=== PATIENT | female | born 1985 | race Caucasian/White ===

== ENCOUNTER 2018-07-01 15:39 | Emergency (ER) | payer OTHER ==
[2018-07-01 16:30] LABS: ABS Basophils 0 10^3/ul (0-0.2); ABS Eosinophils 0 10^3/ul (0-0.6); ABS Lymphocytes 1.2 10^3/ul (1.0-4.8); ABS Monocytes 0.6 10^3/ul (0-0.8); ABS Neutrophils 10.1 10^3/ul (1.5-7.7); ABS Nucleated RBC 0 10^3/ul; Eosinophil % 0.1 % (0-6); Hematocrit 39 % (35-47); Hemoglobin 13.1 g/dl (12.0-16.0); Lymphocyte % 10.3 % (25-47); Mean Corpuscular HGB Conc 34 g/dl (31-36); Mean Corpuscular Hemoglobin 31 pg (27-31); Mean Corpuscular Volume 94 fL (80-97); Mean Platelet Volume 7.1 um3 (7.4-10.4); Nucleated Red Blood Cells % 0; Platelet Count 259 10^3/ul (150-450); Red Blood Count 4.17 10^6/ul (4.00-5.40); Red Cell Distribution Width 13 % (10.5-15)
--- NOTE | 2018-07-01 16:53 | RAD ---
INDICATION: Left flank pain. Fever COMPARISON: None TECHNIQUE: Longitudinal and transverse scans of the kidneys were obtained. FINDINGS: Kidneys: The kidneys are normal in size and echogenicity. No renal masses, calculi, or hydronephrosis is seen. The right kidney measures 10.8 x 5.2 x 4.7 cm and the left kidney 11.5 x 6.1 x 5.1 cm. Other: None IMPRESSION: NORMAL RENAL SONOGRAM.
[2018-07-01 17:40] LABS: EGFR Non-African American 97.6 (>60)
[2018-07-01] MEDS ORDERED: NS 0.9% 1000 ML* 1,000 ML IV ONE (18:40)
[2018-07-01] MEDS ORDERED: Ketorolac INJ* 30 MG/ML 1 ML VIAL IV PUSH ONE (18:40)
[2018-07-01 18:50] LABS: Urine Appearance Cloudy; Urine Blood Negative (Negative); Urine Color Yellow; Urine Ketones 2+ (Negative); Urine Protein Negative (Negative); Urine Red Blood Cell 2+(6-10/hpf) (Absent); Urine Specific Gravity 1.015 (1.010-1.030); Urine Urobilinogen Negative (Negative); Urine White Blood Cell 3+(>20/hpf) (Absent)
[2018-07-01] MEDS ORDERED: Morphine INJ** 4 MG/ML 1 ML CARPUJECT IV ONE (19:32)
[2018-07-01] MEDS ORDERED: Acetaminophen TAB* 325 MG PO ONE (19:41)
[2018-07-01] MEDS ORDERED: Ciprofloxacin 400MG IVPREMIX(* 400 MG/200 ML BAG IVPB ONE (19:41)
--- NOTE | 2018-07-01 19:49 | ED ---
GI/ HPI - HPI Summary HPI Summary: 32-year-old female presents with fever and flank pain for the past 2 days. She states she was seen at [place] yesterday was diagnosed with pyeloa. She is given a dose IV antibiotics there and has not taken her oral antibiotics. They placed her on Bactrim which she has not taken yet. She states been having intermittent fevers. States she is not able to manage her pain at home so she returned. No nausea and no vomiting. No vaginal discharge. No previous belly surgeries. No bowel pain. No chest pain shortness breath. No pains urination. She has a previous history of IV drug use. - History of Current Complaint Chief Complaint: EDFlankPain Time Seen by Provider: 07/01/18 18:27 Stated Complaint: BACK PAIN/FEVER Pain Intensity: 10 - Allergy/Home Medications Allergies/Adverse Reactions: Allergies Allergy/AdvReac Type Severity Reaction Status Date / Time amoxicillin Allergy Rash Verified 07/01/18 15:52 clindamycin Allergy Rash Verified 07/01/18 15:52 diphenhydramine Allergy Rash Verified 07/01/18 15:52 [From Benadryl] ibuprofen Allergy Vomiting Verified 07/01/18 15:52 Penicillins Allergy Rash Verified 07/01/18 15:52 rofecoxib [From Vioxx] Allergy Rash Verified 07/01/18 15:52 Home Medications: Home Medications Citalopram TAB* [CeleXA TAB*] 30 mg PO DAILY 07/01/18 [History Confirmed ] Cyclobenzaprine TAB* [Flexeril 10 MG TAB*] 10 mg PO BID 07/01/18 [History Confirmed 07/01/18] Diclofenac Sodium EC TAB* [Voltaren EC TAB*] 50 mg PO BID 07/01/18 [History Confirmed 07/01/18] Gabapentin TAB(NF) [Neurontin 600 mg TAB(NF)] 900 mg PO TID 07/01/18 [History Confirmed 07/01/18] LevoCETirizine TAB (NF) [Xyzal TAB (NF)] 5 mg PO QPM 07/01/18 [History Confirmed 07/01/18] buPROPion SR TAB* [Wellbutrin SR TAB*] 150 mg PO BID 07/01/18 [History Confirmed 07/01/18] hydrOXYzine HCL TAB* [Atarax 25 MG TAB*] 25 - 50 mg PO DAILY 07/01/18 [History Confirmed 07/01/18] metFORMIN* [Glucophage 500 MG TAB *] 500 mg PO QAM 07/01/18 [History Confirmed 07/01/18] traMADol TAB* [Ultram*] 50 mg PO BID 07/01/18 [History Confirmed 07/01/18] PMH/Surg Hx/FS Hx/Imm Hx Endocrine/Hematology History: Denies: Hx Anticoagulant Therapy Cardiovascular History: Denies: Hx Myocardial Infarction Musculoskeletal History: Reports: Hx Back Problems Neurological History: Reports: Hx Migraine Psychiatric History: Reports: Hx Anxiety, Hx Depression Infectious Disease History: No Infectious Disease History: Denies: Traveled Outside the [place] in Last 30 Days - Family History Known Family History: Positive: Cardiac Disease, Hypertension - Social History Alcohol Use: None Substance Use Type: Reports: None 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 Negative: dysuria All Other Systems Reviewed And Are Negative: Yes Physical Exam Triage Information Reviewed: Yes Vital Signs On Initial Exam: Initial Vitals Temp Pulse Resp BP Pulse Ox 100.3 F 117 20 113/63 97 07/01/18 15:45 07/01/18 15:45 07/01/18 15:45 07/01/18 15:45 07/01/18 15:45 Vital Signs Reviewed: Yes Appearance: Positive: Well-Appearing Skin: Positive: Warm, Dry Head/Face: Positive: Normal Head/Face Inspection Eyes: Positive: Normal, Conjunctiva Clear ENT: Positive: Pharynx normal Respiratory/Lung Sounds: Positive: Clear to Auscultation, Breath Sounds Present Cardiovascular: Positive: Normal, RRR Abdomen Description: Positive: Soft, CVA Tenderness (L), Other: - mild tenderness LUQ Bowel Sounds: Positive: Present Musculoskeletal: Positive: Normal Neurological: Positive: Normal Psychiatric: Positive: Normal Diagnostics - Vital Signs Vital Signs Temp Pulse Resp BP Pulse Ox 07/01/18 19:20 93 96/64 99 07/01/18 19:00 97 99 07/01/18 18:50 97 114/76 99 07/01/18 18:32 101.1 F 07/01/18 18:29 102 103/73 98 07/01/18 17:59 99.7 F 108 20 90/60 98 07/01/18 15:45 100.3 F 117 20 113/63 97 - Laboratory Lab Results: Lab Results 07/01/18 07/01/18 07/01/18 Range/Units 16:20 16:20 16:20 WBC 12.0 H (3.5-10.8) 10^3/ul RBC 4.17 (4.00-5.40) 10^6/ul Hgb 13.1 (12.0-16.0) g/dl Hct 39 (35-47) % MCV 94 (80-97) fL MCH 31 (27-31) pg MCHC 34 (31-36) g/dl RDW 13 (10.5-15) % Plt Count 259 (150-450) 10^3/ul MPV 7.1 L (7.4-10.4) um3 Neut % (Auto) 84.2 H (38-83) % Lymph % (Auto) 10.3 L (25-47) % [place] % (Auto) 5.3 (0-7) % Eos % (Auto) 0.1 (0-6) % Baso % (Auto) 0.1 (0-2) % Absolute Neuts (auto) 10.1 H (1.5-7.7) 10^3/ul Absolute Lymphs (auto) 1.2 (1.0-4.8) 10^3/ul Absolute Monos (auto) 0.6 (0-0.8) 10^3/ul Absolute Eos (auto) 0 (0-0.6) 10^3/ul Absolute Basos (auto) 0 (0-0.2) 10^3/ul Absolute Nucleated RBC 0 10^3/ul Nucleated RBC % 0 Sodium 137 (135-145) mmol/L Potassium 3.7 (3.5-5.0) mmol/L Chloride 107 (101-111) mmol/L Carbon Dioxide 21 L (22-32) mmol/L Anion Gap 9 (2-11) mmol/L BUN 10 (6-24) mg/dL Creatinine 0.70 (0.51-0.95) mg/dL Est GFR ( Amer) 118.1 (>60) Est GFR (Non-Af Amer) 97.6 (>60) BUN/Creatinine Ratio 14.3 (8-20) Glucose 103 H (70-100) mg/dL Lactic Acid 0.8 (0.5-2.0) mmol/L Calcium 9.4 (8.6-10.3) mg/dL Total Bilirubin 0.50 (0.2-1.0) mg/dL AST 16 (13-39) U/L ALT 15 (7-52) U/L Alkaline Phosphatase 112 H (34-104) U/L C-Reactive Protein 87.99 H (<8.01) mg/L Total Protein 7.7 (6.4-8.9) g/dL Albumin 4.2 (3.2-5.2) g/dL Globulin 3.5 (2-4) g/dL Albumin/Globulin Ratio 1.2 (1-3) Lipase < 10 L (11.0-82.0) U/L Beta HCG, Quant < 0.60 mIU/mL Urine Color Urine Appearance Urine pH (5-9) Ur Specific [place] (1.010-1.030) Urine Protein (Negative) Urine Ketones (Negative) Urine Blood (Negative) Urine Nitrate (Negative) Urine Bilirubin (Negative) Urine Urobilinogen (Negative) Ur Leukocyte Esterase (Negative) Urine WBC (Auto) (Absent) Urine RBC (Auto) (Absent) Ur Squamous Epith Cells (Absent) Urine Bacteria (Absent) Urine Glucose (Negative) 07/01/18 Range/Units 18:08 WBC (3.5-10.8) 10^3/ul RBC (4.00-5.40) 10^6/ul Hgb (12.0-16.0) g/dl Hct (35-47) % MCV (80-97) fL MCH (27-31) pg MCHC (31-36) g/dl RDW (10.5-15) % Plt Count (150-450) 10^3/ul MPV (7.4-10.4) um3 Neut % (Auto) (38-83) % Lymph % (Auto) (25-47) % [place] % (Auto) (0-7) % Eos % (Auto) (0-6) % Baso % (Auto) (0-2) % Absolute Neuts (auto) (1.5-7.7) 10^3/ul Absolute Lymphs (auto) (1.0-4.8) 10^3/ul Absolute Monos (auto) (0-0.8) 10^3/ul Absolute Eos (auto) (0-0.6) 10^3/ul Absolute Basos (auto) (0-0.2) 10^3/ul Absolute Nucleated RBC 10^3/ul Nucleated RBC % Sodium (135-145) mmol/L Potassium (3.5-5.0) mmol/L Chloride (101-111) mmol/L Carbon Dioxide (22-32) mmol/L Anion Gap (2-11) mmol/L BUN (6-24) mg/dL Creatinine (0.51-0.95) mg/dL Est GFR ( Amer) (>60) Est GFR (Non-Af Amer) (>60) BUN/Creatinine Ratio (8-20) Glucose (70-100) mg/dL Lactic Acid (0.5-2.0) mmol/L Calcium (8.6-10.3) mg/dL Total Bilirubin (0.2-1.0) mg/dL AST (13-39) U/L ALT (7-52) U/L Alkaline Phosphatase (34-104) U/L C-Reactive Protein (<8.01) mg/L Total Protein (6.4-8.9) g/dL Albumin (3.2-5.2) g/dL Globulin (2-4) g/dL Albumin/Globulin Ratio (1-3) Lipase (11.0-82.0) U/L Beta HCG, Quant mIU/mL Urine Color Yellow Urine Appearance Cloudy Urine pH 6.0 (5-9) Ur Specific [place] 1.015 (1.010-1.030) Urine Protein Negative (Negative) Urine Ketones 2+ A (Negative) Urine Blood Negative (Negative) Urine Nitrate Negative (Negative) Urine Bilirubin Negative (Negative) Urine Urobilinogen Negative (Negative) Ur Leukocyte Esterase 2+ A (Negative) Urine WBC (Auto) 3+(>20/hpf) A (Absent) Urine RBC (Auto) 2+(6-10/hpf) A (Absent) Ur Squamous Epith Cells Present A (Absent) Urine Bacteria Absent (Absent) Urine Glucose Negative (Negative) Result Diagrams: 07/01/18 16:20 07/01/18 16:20 Lab Statement: Any lab studies that have been ordered have been reviewed, and results considered in the medical decision making process. - Ultrasound No standard instances Ultrasound Interpretation: No Acute Changes Ultrasound Interpretation Completed By: Nicole RIVERA Course/Dx - Course Course Of Treatment: 32-year-old female presents with fever and flank pain for the past 2 days. She states she was seen at [place] yesterday was diagnosed with pyeloa. She is given a dose IV antibiotics there and has not taken her oral antibiotics. They placed her on Bactrim which she has not taken yet. She states been having intermittent fevers. States she is not able to manage her pain at home so she returned. No nausea and no vomiting. No vaginal discharge. No previous belly surgeries. No bowel pain. No chest pain shortness breath. No pains urination. on exam has CVA tenderness left. LUQ pain. labs wbc 12. lactic normal. urine shows uti. renal u/s normal. gave dose of cipro here. gave pain medication and feeling better. patient does not want to admitted. will send home with bactrim for more days as only has enough for 7 days. will send home with pain medication. patient understand and agrees with plan. - Diagnoses Differential Diagnoses - Female: Pyelonephritis, Urinary Tract Infection, Ureteral Calculi Provider Diagnoses: Pyelonephritis Discharge - Sign-Out/Discharge Documenting (check all that apply): Patient Departure - Discharge Plan Condition: Good Disposition: HOME Prescriptions: oxyCODONE TAB* [Roxycodone TAB 5 mg*] 5 mg PO Q6H PRN #12 tab MDD 4 PRN Reason: Pain Sulfamethox/Trimethoprim DS* [Bactrim DS 800/160 TAB*] 1 tab PO BID #8 tab Patient Education Materials: Kidney Infection (ED) Referrals: No Primary Care Phys,NOPCP [Primary Care Provider] - Additional Instructions: Take antibiotic twice a day for 14 days Drink plenty of water Take Tylenol every 6 hours as needed for pain and fever, use oxycodone every 6 hours as need for break through pain Return to ED if develop severe vomiting, or any new or worsening symptoms - Billing Disposition and Condition Condition: GOOD Disposition: Home
[2018-07-01] MEDS ORDERED: Morphine INJ* 2 MG/ML 1 ML SYRINGE (TWO MG - NEW SYRINGE VERSION) ONE (20:10)
[2018-07-01 21:26] VITALS: BP 103/75
== END 2018-07-01 21:24 | disposition home or self-care (01) ==
LOC: ED 15:39
DX: N12 Tubulo-interstitial nephritis, not specified as acute or chronic (principal); F17.200 Nicotine dependence, unspecified, uncomplicated; F41.9 Anxiety disorder, unspecified; F32.9 Major depressive disorder, single episode, unspecified; Z88.0 Allergy status to penicillin; Z88.3 Allergy status to other anti-infective agents; Z88.6 Allergy status to analgesic agent
CPT/HCPCS: 36415; 76775; 80053; 81003; 81015; 83605; 83690; 84702; 85025; 86140; 87040; 87086; 96365; 96375; 96376; 99283; A9270-GY; J0744; J1885; J2270

== ENCOUNTER 2018-08-21 14:49 | Emergency (ER) | payer OTHER ==
[2018-08-21 15:59] LABS: ABS Basophils 0.1 10^3/ul (0-0.2); ABS Eosinophils 0.1 10^3/ul (0-0.6); ABS Lymphocytes 2.3 10^3/ul (1.0-4.8); ABS Monocytes 0.4 10^3/ul (0-0.8); ABS Neutrophils 2.9 10^3/ul (1.5-7.7); ABS Nucleated RBC 0 10^3/ul; Eosinophil % 2.6 % (0-6); Hematocrit 38 % (35-47); Hemoglobin 12.8 g/dl (12.0-16.0); Mean Corpuscular HGB Conc 34 g/dl (31-36); Mean Corpuscular Hemoglobin 31 pg (27-31); Mean Corpuscular Volume 93 fL (80-97); Mean Platelet Volume 7.7 um3 (7.4-10.4); Nucleated Red Blood Cells % 0.1; Platelet Count 238 10^3/ul (150-450); Red Blood Count 4.08 10^6/ul (4.00-5.40); Red Cell Distribution Width 14 % (10.5-15); White Blood Count 5.8 10^3/ul (3.5-10.8)
[2018-08-21 16:16] LABS: EGFR Non-African American 92.4 (>60)
--- NOTE | 2018-08-21 16:40 | RAD ---
INDICATION: Shortness of breath and chest pain. COMPARISON: There are no relevant prior studies available for comparison. TECHNIQUE: Dual-energy PA and lateral views of the chest were obtained. FINDINGS: The heart is within normal limits in size. Mediastinal and hilar contours appear within normal limits. The lungs are clear. No pleural effusion is present. IMPRESSION: NO EVIDENCE FOR ACTIVE CARDIOPULMONARY DISEASE.
[2018-08-21 17:28] VITALS: BP 109/74
--- NOTE | 2018-08-22 07:53 | ED ---
HPI Chest Pain - HPI Summary HPI Summary: Patient is a 33-year-old female smoker presenting to the ED with 1 week history of midsternal chest pain is nonradiating. Worse with palpation of midsternal region, alleviated with nothing. She has been taking Tylenol, however is allergic to ibuprofen without relief. Denies any significant PMH. Denies any immediate family members with cardiac history. Denies any fevers, sweats, chills. She states she has been coughing more frequently, without production and is diagnosed with bronchitis several times throughout the ear. She states this feels somewhat similar to her bronchitis symptoms. She has not been taking cough medication, steroids or other [id number]'s for relief. She denies any recent travel or OCP use. - History of Current Complaint Chief Complaint: EDFluSymptoms Time Seen by Provider: 08/21/18 15:19 Hx Obtained From: Patient Onset/Duration: Started Hours Ago Timing: Constant Initial Severity: Moderate Current Severity: Moderate Pain Intensity: 2 Pain Scale Used: 0-10 Numeric Chest Pain Location: Mid Sternal Chest Pain Radiates: No Character: Crushing, Dull/Aching Aggravating Factor(s): Other: - palpation Alleviating Factor(s): Nothing Associated Signs and Symptoms: Positive: Cough, Nonproductive Cough - Risk Factors Pulmonary Embolism Risk Factors: Smoking TAD Risk Factors: Smoking AMI/ACS Risk Factors: Smoking - Allergy/Home Medications Allergies/Adverse Reactions: Allergies Allergy/AdvReac Type Severity Reaction Status Date / Time amoxicillin Allergy Rash Verified 07/01/18 15:52 clindamycin Allergy Rash Verified 07/01/18 15:52 diphenhydramine Allergy Rash Verified 07/01/18 15:52 [From Benadryl] ibuprofen Allergy Vomiting Verified 07/01/18 15:52 Penicillins Allergy Rash Verified 07/01/18 15:52 rofecoxib [From Vioxx] Allergy Rash Verified 07/01/18 15:52 Home Medications: Home Medications hydrOXYzine pamoate [Vistaril] 25 - 50 mg PO DAILY 08/21/18 [History Confirmed 08/21/18] PMH/Surg Hx/FS Hx/Imm Hx Previously Healthy: Yes Endocrine/Hematology History: Denies: Hx Anticoagulant Therapy Cardiovascular History: Denies: Hx Myocardial Infarction Musculoskeletal History: Reports: Hx Back Problems Neurological History: Reports: Hx Migraine Psychiatric History: Reports: Hx Anxiety, Hx Depression - Immunization History Hx Pertussis Vaccination: No Immunizations Up to Date: Yes Infectious Disease History: No Infectious Disease History: Denies: Traveled Outside the [place] in Last 30 Days - Family History Known Family History: Positive: Cardiac Disease, Hypertension - Social History Occupation: Unemployed Lives: With Family Alcohol Use: None Hx Substance Use: No Substance Use Type: Reports: None 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 Negative: Shortness Of Breath Negative: Abdominal Pain, Vomiting, Diarrhea, Nausea Genitourinary: Negative Positive: no symptoms reported, see HPI Positive: Myalgia - misternal chest pain Negative: Rash, Bruising Neurological: Negative All Other Systems Reviewed And Are Negative: Yes Physical Exam Triage Information Reviewed: Yes Vital Signs On Initial Exam: Initial Vitals Temp Pulse Resp BP Pulse Ox 97.1 F 105 18 99/73 99 08/21/18 15:01 08/21/18 15:01 08/21/18 15:01 08/21/18 15:01 08/21/18 15:01 Vital Signs Reviewed: Yes Appearance: Positive: No Pain Distress, Well-Nourished Skin: Positive: Warm, Skin Color Reflects Adequate Perfusion Head/Face: Positive: Normal Head/Face Inspection Eyes: Positive: EOMI, DERREK, Conjunctiva Clear Neck: Positive: Supple, Nontender, No Lymphadenopathy Respiratory/Lung Sounds: Positive: Wheezes Cardiovascular: Positive: RRR, Pulses are Symmetrical in both Upper and Lower Extremities Musculoskeletal: Positive: Strength/ROM Intact Neurological: Positive: Speech Normal Psychiatric: Positive: Normal, Affect/Mood Appropriate AVPU Assessment: Alert - Lashes are Diagnostics - Vital Signs Vital Signs Temp Pulse Resp BP Pulse Ox 08/21/18 17:27 98 F 78 18 109/74 100 08/21/18 15:01 97.1 F 105 18 99/73 99 - Laboratory Lab Results: Lab Results 08/21/18 08/21/18 08/21/18 Range/Units 15:51 15:51 15:51 WBC 5.8 (3.5-10.8) 10^3/ul RBC 4.08 (4.00-5.40) 10^6/ul Hgb 12.8 (12.0-16.0) g/dl Hct 38 (35-47) % MCV 93 (80-97) fL MCH 31 (27-31) pg MCHC 34 (31-36) g/dl RDW 14 (10.5-15) % Plt Count 238 (150-450) 10^3/ul MPV 7.7 (7.4-10.4) um3 Neut % (Auto) 50.1 (38-83) % Lymph % (Auto) 40.0 (25-47) % [place] % (Auto) 6.4 (0-7) % Eos % (Auto) 2.6 (0-6) % Baso % (Auto) 0.9 (0-2) % Absolute Neuts (auto) 2.9 (1.5-7.7) 10^3/ul Absolute Lymphs (auto) 2.3 (1.0-4.8) 10^3/ul Absolute Monos (auto) 0.4 (0-0.8) 10^3/ul Absolute Eos (auto) 0.1 (0-0.6) 10^3/ul Absolute Basos (auto) 0.1 (0-0.2) 10^3/ul Absolute Nucleated RBC 0 10^3/ul Nucleated RBC % 0.1 D-Dimer, Quantitative < 200 (Less Than 230) ng/mL Sodium 142 (135-145) mmol/L Potassium 3.6 (3.5-5.0) mmol/L Chloride 111 (101-111) mmol/L Carbon Dioxide 28 (22-32) mmol/L Anion Gap 3 (2-11) mmol/L BUN 6 (6-24) mg/dL Creatinine 0.73 (0.51-0.95) mg/dL Est GFR ( Amer) 111.8 (>60) Est GFR (Non-Af Amer) 92.4 (>60) BUN/Creatinine Ratio 8.2 (8-20) Glucose 79 (70-100) mg/dL Lactic Acid (0.5-2.0) mmol/L Calcium 9.5 (8.6-10.3) mg/dL Magnesium 2.0 (1.9-2.7) mg/dL Total Bilirubin 0.30 (0.2-1.0) mg/dL AST 11 L (13-39) U/L ALT 8 (7-52) U/L Alkaline Phosphatase 71 (34-104) U/L Troponin I 0.00 (<0.04) ng/mL Total Protein 7.2 (6.4-8.9) g/dL Albumin 4.3 (3.2-5.2) g/dL Globulin 2.9 (2-4) g/dL Albumin/Globulin Ratio 1.5 (1-3) Beta HCG, Quant < 0.60 mIU/mL 08/21/18 Range/Units 15:51 WBC (3.5-10.8) 10^3/ul RBC (4.00-5.40) 10^6/ul Hgb (12.0-16.0) g/dl Hct (35-47) % MCV (80-97) fL MCH (27-31) pg MCHC (31-36) g/dl RDW (10.5-15) % Plt Count (150-450) 10^3/ul MPV (7.4-10.4) um3 Neut % (Auto) (38-83) % Lymph % (Auto) (25-47) % [place] % (Auto) (0-7) % Eos % (Auto) (0-6) % Baso % (Auto) (0-2) % Absolute Neuts (auto) (1.5-7.7) 10^3/ul Absolute Lymphs (auto) (1.0-4.8) 10^3/ul Absolute Monos (auto) (0-0.8) 10^3/ul Absolute Eos (auto) (0-0.6) 10^3/ul Absolute Basos (auto) (0-0.2) 10^3/ul Absolute Nucleated RBC 10^3/ul Nucleated RBC % D-Dimer, Quantitative (Less Than 230) ng/mL Sodium (135-145) mmol/L Potassium (3.5-5.0) mmol/L Chloride (101-111) mmol/L Carbon Dioxide (22-32) mmol/L Anion Gap (2-11) mmol/L BUN (6-24) mg/dL Creatinine (0.51-0.95) mg/dL Est GFR ( Amer) (>60) Est GFR (Non-Af Amer) (>60) BUN/Creatinine Ratio (8-20) Glucose (70-100) mg/dL Lactic Acid 1.5 (0.5-2.0) mmol/L Calcium (8.6-10.3) mg/dL Magnesium (1.9-2.7) mg/dL Total Bilirubin (0.2-1.0) mg/dL AST (13-39) U/L ALT (7-52) U/L Alkaline Phosphatase (34-104) U/L Troponin I (<0.04) ng/mL Total Protein (6.4-8.9) g/dL Albumin (3.2-5.2) g/dL Globulin (2-4) g/dL Albumin/Globulin Ratio (1-3) Beta HCG, Quant mIU/mL Result Diagrams: 08/21/18 15:51 08/21/18 15:51 Lab Statement: Any lab studies that have been ordered have been reviewed, and results considered in the medical decision making process. Chest Pain Course/Dx - Course Course Of Treatment: During the course treatment, the patient is evaluated for midsternal chest pain. On physical examination, chest pain is midsternal without radiation and worse with palpation. Denies any feelings of palpitations or fluttering. Denies any recent travel or OCP use, however patient is a smoker. D-dimer obtained which is less than 200. Troponin obtained 0.00. Chest x-ray is negative for any acute cardiopulmonary findings. Breath sounds present, lungs with bilateral inspirational wheezing. RRR. Patient will be diagnosed with midsternal chest pain as well as bronchitis and she is given steroids and Tessalon. EKG shows NSR. - Chest Pain Differential Diagnosis/HQI/PQRI: Chest Wall - Diagnoses Provider Diagnoses: Midsternal chest pain Discharge - Sign-Out/Discharge Documenting (check all that apply): Patient Departure - Discharge Plan Condition: Stable Disposition: HOME Prescriptions: Benzonatate CAP* [Tessalon CAP*] 100 mg PO TID #21 cap predniSONE TAB* [Deltasone TAB*] 50 mg PO DAILY #5 tab MDD 1 Referrals: No Primary Care Phys,NOPCP [Primary Care Provider] - Additional Instructions: Prednisone once daily in the morning 5 days Tessalon as needed for cough Tylenol for any discomfort Return to the ED if you develop any worsening or changing symptoms - Billing Disposition and Condition Condition: STABLE Disposition: Home
== END 2018-08-21 17:27 | disposition home or self-care (01) ==
LOC: ED 14:49
DX: R07.9 Chest pain, unspecified (principal); R05 Cough; F17.210 Nicotine dependence, cigarettes, uncomplicated
CPT/HCPCS: 36415; 71046; 80053; 83605; 83735; 84484; 84702; 85025; 85379; 93005; 99282

== ENCOUNTER 2018-09-07 16:55 | Emergency (ER) | payer OTHER ==
[2018-09-07 18:24] LABS: ABS Basophils 0.1 10^3/ul (0-0.2); ABS Eosinophils 0.1 10^3/ul (0-0.6); ABS Lymphocytes 1.9 10^3/ul (1.0-4.8); ABS Monocytes 0.4 10^3/ul (0-0.8); ABS Neutrophils 1.5 10^3/ul (1.5-7.7); ABS Nucleated RBC 0 10^3/ul; Eosinophil % 3.4 % (0-6); Hematocrit 40 % (35-47); Hemoglobin 13.3 g/dl (12.0-16.0); Lymphocyte % 46.8 % (25-47); Mean Corpuscular HGB Conc 34 g/dl (31-36); Mean Corpuscular Hemoglobin 32 pg (27-31); Mean Corpuscular Volume 93 fL (80-97); Mean Platelet Volume 7.6 um3 (7.4-10.4); Nucleated Red Blood Cells % 0.1; Platelet Count 271 10^3/ul (150-450); Red Blood Count 4.23 10^6/ul (4.00-5.40); Red Cell Distribution Width 13 % (10.5-15); White Blood Count 4.1 10^3/ul (3.5-10.8)
[2018-09-07 18:41] LABS: EGFR Non-African American 92.4 (>60)
[2018-09-07 19:04] LABS: Urine Appearance Cloudy; Urine Blood Negative (Negative); Urine Color Amber; Urine Ketones 1+ (Negative); Urine Protein 1+(30 mg/dL) (Negative); Urine Red Blood Cell Absent (Absent); Urine Specific Gravity 1.024 (1.010-1.030); Urine Urobilinogen Positive (Negative); Urine White Blood Cell 2+(11-20/hpf) (Absent)
[2018-09-07] MEDS ORDERED: Sulfamethox/Trimethoprim DS 800/160* TAB PO ONE (19:09)
[2018-09-07] MEDS ORDERED: Cyclobenzaprine TAB* 10 MG PO ONE (19:09)
[2018-09-07] MEDS ORDERED: hydrOXYzine HCL TAB* 25 MG PO ONE (19:09)
--- NOTE | 2018-09-07 19:14 | ED ---
GI/ HPI - HPI Summary HPI Summary: 33-year-old female presents with acute on chronic back pain and lower abdominal pain for the past couple days. She admits to dysuria. She admits to frequency. She denies any flank pain. She denies any new location of the back pain. No saddle anesthesia or loss of bowel or bladder. no fevers. No new injury. She also states that her mental health provider stopped all of her medications so she started feeling anxious and depressed. She denies any suicidal or homicidal ideations. She states she is also off of her medications for her back pain. she states that her sugars have been dropping low to 70 and 80s. she is on metformin for her dm. she states she does not know what to eat for her DM. - History of Current Complaint Chief Complaint: EDGeneral Time Seen by Provider: 09/07/18 18:03 Stated Complaint: BACK/ABD PAINC Pain Intensity: 4 - Allergy/Home Medications Allergies/Adverse Reactions: Allergies Allergy/AdvReac Type Severity Reaction Status Date / Time amoxicillin Allergy Rash Verified 07/01/18 15:52 clindamycin Allergy Rash Verified 07/01/18 15:52 diphenhydramine Allergy Rash Verified 07/01/18 15:52 [From Benadryl] ibuprofen Allergy Vomiting Verified 07/01/18 15:52 Penicillins Allergy Rash Verified 07/01/18 15:52 rofecoxib [From Vioxx] Allergy Rash Verified 07/01/18 15:52 PMH/Surg Hx/FS Hx/Imm Hx Endocrine/Hematology History: Reports: Hx Diabetes Denies: Hx Anticoagulant Therapy Cardiovascular History: Denies: Hx Myocardial Infarction Musculoskeletal History: Reports: Hx Back Problems Neurological History: Reports: Hx Migraine Psychiatric History: Reports: Hx Anxiety, Hx Depression Infectious Disease History: No Infectious Disease History: Denies: Traveled Outside the [place] in Last 30 Days - Family History Known Family History: Positive: Cardiac Disease, Hypertension - Social History Alcohol Use: None Hx Substance Use: No Substance Use Type: Reports: None 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 Hx Tobacco Use: Yes Smoking Status (MU): Heavy Every Day Tobacco Smoker Review of Systems Negative: Fever Negative: Chest Pain Negative: Shortness Of Breath Positive: Abdominal Pain Positive: dysuria Positive: Myalgia - back pain Positive: Anxious, Depressed All Other Systems Reviewed And Are Negative: Yes Physical Exam Triage Information Reviewed: Yes Vital Signs On Initial Exam: Initial Vitals Temp Pulse Resp BP Pulse Ox 98.1 F 90 16 118/52 100 09/07/18 16:56 09/07/18 16:56 09/07/18 16:56 09/07/18 16:56 09/07/18 16:56 Vital Signs Reviewed: Yes Appearance: Positive: Well-Appearing Skin: Positive: Warm, Dry Head/Face: Positive: Normal Head/Face Inspection Eyes: Positive: Normal, Conjunctiva Clear ENT: Positive: Pharynx normal Respiratory/Lung Sounds: Positive: Clear to Auscultation, Breath Sounds Present Cardiovascular: Positive: Normal, RRR Abdomen Description: Positive: Soft, Other: - tenderness suprapubic. Negative: CVA Tenderness (R), CVA Tenderness (L) Bowel Sounds: Positive: Present Musculoskeletal: Positive: Strength/ROM Intact - back, Other - tenderness lower back, neg SLR, good pulses, sensation grossly intact Neurological: Positive: Normal Psychiatric: Positive: Normal Diagnostics - Vital Signs Vital Signs Temp Pulse Resp BP Pulse Ox 09/07/18 18:21 67 113/71 98 09/07/18 18:12 74 99 09/07/18 16:56 98.1 F 90 16 118/52 100 - Laboratory Lab Results: Lab Results 09/07/18 09/07/18 09/07/18 Range/Units 18:11 18:14 18:14 WBC 4.1 (3.5-10.8) 10^3/ul RBC 4.23 (4.00-5.40) 10^6/ul Hgb 13.3 (12.0-16.0) g/dl Hct 40 (35-47) % MCV 93 (80-97) fL MCH 32 H (27-31) pg MCHC 34 (31-36) g/dl RDW 13 (10.5-15) % Plt Count 271 (150-450) 10^3/ul MPV 7.6 (7.4-10.4) um3 Neut % (Auto) 37.4 L (38-83) % Lymph % (Auto) 46.8 (25-47) % [place] % (Auto) 9.5 H (0-7) % Eos % (Auto) 3.4 (0-6) % Baso % (Auto) 2.9 H (0-2) % Absolute Neuts (auto) 1.5 (1.5-7.7) 10^3/ul Absolute Lymphs (auto) 1.9 (1.0-4.8) 10^3/ul Absolute Monos (auto) 0.4 (0-0.8) 10^3/ul Absolute Eos (auto) 0.1 (0-0.6) 10^3/ul Absolute Basos (auto) 0.1 (0-0.2) 10^3/ul Absolute Nucleated RBC 0 10^3/ul Nucleated RBC % 0.1 Sodium 138 (135-145) mmol/L Potassium 3.5 (3.5-5.0) mmol/L Chloride 107 (101-111) mmol/L Carbon Dioxide 24 (22-32) mmol/L Anion Gap 7 (2-11) mmol/L BUN 8 (6-24) mg/dL Creatinine 0.73 (0.51-0.95) mg/dL Est GFR ( Amer) 111.8 (>60) Est GFR (Non-Af Amer) 92.4 (>60) BUN/Creatinine Ratio 11.0 (8-20) Glucose 88 (70-100) mg/dL POC Glucose (mg/dL) 89 (70-100) mg/dL Calcium 9.6 (8.6-10.3) mg/dL Magnesium 2.0 (1.9-2.7) mg/dL Total Bilirubin 0.40 (0.2-1.0) mg/dL AST 15 (13-39) U/L ALT 10 (7-52) U/L Alkaline Phosphatase 85 (34-104) U/L C-Reactive Protein < 1.00 (<8.01) mg/L Total Protein 7.5 (6.4-8.9) g/dL Albumin 4.5 (3.2-5.2) g/dL Globulin 3.0 (2-4) g/dL Albumin/Globulin Ratio 1.5 (1-3) Beta HCG, Quant < 0.60 mIU/mL Urine Color Urine Appearance Urine pH (5-9) Ur Specific [place] (1.010-1.030) Urine Protein (Negative) Urine Ketones (Negative) Urine Blood (Negative) Urine Nitrate (Negative) Urine Bilirubin (Negative) Urine Urobilinogen (Negative) Ur Leukocyte Esterase (Negative) Urine WBC (Auto) (Absent) Urine RBC (Auto) (Absent) Ur Squamous Epith Cells (Absent) Urine Bacteria (Absent) Urine Glucose (Negative) 09/07/18 09/07/18 Range/Units 18:50 18:57 WBC (3.5-10.8) 10^3/ul RBC (4.00-5.40) 10^6/ul Hgb (12.0-16.0) g/dl Hct (35-47) % MCV (80-97) fL MCH (27-31) pg MCHC (31-36) g/dl RDW (10.5-15) % Plt Count (150-450) 10^3/ul MPV (7.4-10.4) um3 Neut % (Auto) (38-83) % Lymph % (Auto) (25-47) % [place] % (Auto) (0-7) % Eos % (Auto) (0-6) % Baso % (Auto) (0-2) % Absolute Neuts (auto) (1.5-7.7) 10^3/ul Absolute Lymphs (auto) (1.0-4.8) 10^3/ul Absolute Monos (auto) (0-0.8) 10^3/ul Absolute Eos (auto) (0-0.6) 10^3/ul Absolute Basos (auto) (0-0.2) 10^3/ul Absolute Nucleated RBC 10^3/ul Nucleated RBC % Sodium (135-145) mmol/L Potassium (3.5-5.0) mmol/L Chloride (101-111) mmol/L Carbon Dioxide (22-32) mmol/L Anion Gap (2-11) mmol/L BUN (6-24) mg/dL Creatinine (0.51-0.95) mg/dL Est GFR ( Amer) (>60) Est GFR (Non-Af Amer) (>60) BUN/Creatinine Ratio (8-20) Glucose (70-100) mg/dL POC Glucose (mg/dL) 84 (70-100) mg/dL Calcium (8.6-10.3) mg/dL Magnesium (1.9-2.7) mg/dL Total Bilirubin (0.2-1.0) mg/dL AST (13-39) U/L ALT (7-52) U/L Alkaline Phosphatase (34-104) U/L C-Reactive Protein (<8.01) mg/L Total Protein (6.4-8.9) g/dL Albumin (3.2-5.2) g/dL Globulin (2-4) g/dL Albumin/Globulin Ratio (1-3) Beta HCG, Quant mIU/mL Urine Color [place] Urine Appearance Cloudy Urine pH 5.0 (5-9) Ur Specific [place] 1.024 (1.010-1.030) Urine Protein 1+(30 mg/dl) A (Negative) Urine Ketones 1+ A (Negative) Urine Blood Negative (Negative) Urine Nitrate Positive A (Negative) Urine Bilirubin Negative (Negative) Urine Urobilinogen Positive A (Negative) Ur Leukocyte Esterase 1+ A (Negative) Urine WBC (Auto) 2+(11-20/hpf) A (Absent) Urine RBC (Auto) Absent (Absent) Ur Squamous Epith Cells Present A (Absent) Urine Bacteria 1+ A (Absent) Urine Glucose Negative (Negative) Result Diagrams: 09/07/18 18:14 09/07/18 18:14 Lab Statement: Any lab studies that have been ordered have been reviewed, and results considered in the medical decision making process. GIGU Course/Dx - Course Course Of Treatment: 33-year-old female presents with acute on chronic back pain and lower abdominal pain for the past couple days. She admits to dysuria. She admits to frequency. She denies any flank pain. She denies any new location of the back pain. No saddle anesthesia or loss of bowel or bladder. no fevers. No new injury. She also states that her mental health provider stopped all of her medications so she started feeling anxious and depressed. She denies any suicidal or homicidal ideations. She states she is also off of her medications for her back pain. On exam tenderness lower back. Neurovascular intact. Has tenderness suprapubic. Labs within normal limits. Urine shows UTI. We will treat uti with Bactrim. will place patient back on hydroxyzine for anxiety. Will give Flexeril for back pain. Patient will establish care with a new metnal health provider. Patient is requesting information on her diabetes so we'll give referral to [facility] for advice from a informatics educator. Patient understands agrees with plan. - Diagnoses Differential Diagnoses - Female: Gastroenteritis (Viral), Gastroenteritis ( Bacterial), Urinary Tract Infection Provider Diagnoses: UTI (urinary tract infection), Diabetes, Back pain, Anxiety Discharge - Sign-Out/Discharge Documenting (check all that apply): Patient Departure - Discharge Plan Condition: Good Disposition: HOME Prescriptions: Cyclobenzaprine TAB* [Flexeril 10 MG TAB*] 10 mg PO BID PRN #30 tab PRN Reason: Pain hydrOXYzine HCL TAB* [Atarax 25 MG TAB*] 25 mg PO QID PRN #30 tab PRN Reason: Anxiety Sulfamethox/Trimethoprim DS* [Bactrim DS 800/160 TAB*] 1 tab PO BID #9 tab Patient Education Materials: Urinary Tract Infection in Women (ED) Referrals: Kalin Machuca JR, PA [Primary Care Provider] - [facility] [Outside] Additional Instructions: follow up with [facility] about diabetes Take Bactrim twice a day for 5 days, first dose given in ED Take flexeril three times a day for pain take hydroxyzine four times a day as needed for anxiety follow up with mental health as soon as possible Follow up with primary in 7 days Return to ED if develop any new or worsening symptoms - Billing Disposition and Condition Condition: GOOD Disposition: Home
[2018-09-07 19:39] VITALS: BP 127/71
--- NOTE | 2018-09-11 13:00 | ED ---
Progress - Progress Note Progress Note: Patient's final urine culture reveals greater than 100,000 Escherichia coli. Patient was started on Bactrim. Organism appears to be sensitive. No change in treatment at this time. Course/Dx - Course Course Of Treatment: 33-year-old female presents with acute on chronic back pain and lower abdominal pain for the past couple days. She admits to dysuria. She admits to frequency. She denies any flank pain. She denies any new location of the back pain. No saddle anesthesia or loss of bowel or bladder. no fevers. No new injury. She also states that her mental health provider stopped all of her medications so she started feeling anxious and depressed. She denies any suicidal or homicidal ideations. She states she is also off of her medications for her back pain. On exam tenderness lower back. Neurovascular intact. Has tenderness suprapubic. Labs within normal limits. Urine shows UTI. We will treat uti with Bactrim. will place patient back on hydroxyzine for anxiety. Will give Flexeril for back pain. [facility]. Patient is requesting information on her diabetes so we'll give referral to [facility] for advice from a environmental educator. Patient understands agrees with plan. - Diagnoses Provider Diagnoses: UTI (urinary tract infection), Diabetes, Back pain, Anxiety Discharge - Sign-Out/Discharge Documenting (check all that apply): Post-Discharge Follow Up - Discharge Plan Condition: Good Disposition: HOME Prescriptions: Cyclobenzaprine TAB* [Flexeril 10 MG TAB*] 10 mg PO BID PRN #30 tab PRN Reason: Pain hydrOXYzine HCL TAB* [Atarax 25 MG TAB*] 25 mg PO QID PRN #30 tab PRN Reason: Anxiety Sulfamethox/Trimethoprim DS* [Bactrim DS 800/160 TAB*] 1 tab PO BID #9 tab Patient Education Materials: Urinary Tract Infection in Women (ED) Referrals: [facility] [Outside] Kalin Machuca JR, PA [Primary Care Provider] - Additional Instructions: follow up with [facility] about diabetes Take Bactrim twice a day for 5 days, first dose given in ED Take flexeril three times a day for pain take hydroxyzine four times a day as needed for anxiety follow up with mental health as soon as possible Follow up with primary in 7 days Return to ED if develop any new or worsening symptoms - Billing Disposition and Condition Condition: GOOD Disposition: Home
== END 2018-09-07 19:39 | disposition home or self-care (01) ==
LOC: ED 16:55
DX: N39.0 Urinary tract infection, site not specified (principal); B96.20 Unspecified Escherichia coli [E. coli] as the cause of diseases classified elsewhere; M54.9 Dorsalgia, unspecified; E11.9 Type 2 diabetes mellitus without complications; F41.9 Anxiety disorder, unspecified; Z88.6 Allergy status to analgesic agent; Z88.1 Allergy status to other antibiotic agents; Z88.0 Allergy status to penicillin; Z88.8 Allergy status to other drugs, medicaments and biological substances; F17.200 Nicotine dependence, unspecified, uncomplicated
CPT/HCPCS: 36415; 80053; 81003; 81015; 83735; 84702; 85025; 86140; 87077; 87086; 87186; 99282; A9270-GY

== ENCOUNTER 2019-05-30 01:15 | Emergency (ER) | payer OTHER ==
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
--- NOTE | 2019-05-30 07:14 | ED ---
Progress - Progress Note Progress Note: This patient was signed out from Dr. Nicholson to Dr. Flowers upon shift change at 07:00 05/30/19 pending mental health disposition. Per mental health rn cardiovascular, Dr. Gurrola has cleared the patient for discharge. Dx: anxiety, depression. - Consult/PCP Time Called: 01:15 Course/Dx - Course Course Of Treatment: Patient was signed out to Dr. Nicholson the previous ER attending. The patient is awaiting for mental health evaluation. Dr. Gurrola assessed this patient and he recommends for the patient to be discharged home with follow-up with the [facility] with a diagnosis of depression. The patient is hemodynamically stable alert and oriented 3. - Diagnoses Provider Diagnoses: Anxiety, Depression - Provider Notifications Discussed Care Of Patient With: Robbin Gurrola Time Discussed With Above Provider: 07:15 Instructed by Provider To: Other - Per mental health rn cardiovascular, Dr. Gurrola has cleared the patient for discharge. Dx: anxiety, depression. Discharge - Sign-Out/Discharge Documenting (check all that apply): Patient Departure - DC, Receiving Sign-Out Receiving patient FROM: Harley Nicholson Patient Received Moderate/Deep Sedation with Procedure: No - Discharge Plan Condition: Stable Disposition: HOME Patient Education Materials: Stress (ED), Depression (DC), Generalized Anxiety Disorder (ED), Anxiety (ED) Referrals: [facility] [Outside] Additional Instructions: Per completion of a mental health evaluation, you are cleared for release and do not require inpatient psychiatric hospitalization at this time. Please go to nearest emergency room or call 911 if safety concerns arise or condition worsens. Please call to set up appointment with different counselor than previous also request to have the psychiatrist review your meds: [facility] [address] [place] [address] They can assign you a different counselor than you previously had and have Psychiatry on staff to review your meds. Important Phone Numbers: [facility] [phone] Suicide Prevention and Crisis Services........................ [phone] National Suicide Prevention Lifeline............................ [phone] (9185) [facility]....................... [phone] Alcoholics Anonymous............................................... [phone] [facility].............. [phone] [facility] Police.............................................. Substance Abuse Treatment Programs [facility] [phone] Alcohol and Drug [place] [facility] - Billing Disposition and Condition Condition: STABLE Disposition: Home - Attestation Statements Document Initiated by Scribe: Yes Documenting Scribe: Michel Walker Provider For Whom Scribe is Documenting (Include Credential): Edgar Flowers MD Scribe Attestation: Michel Galvan scribed for Edgar Flowers MD on 05/30/19 at 0814. Scribe Documentation Reviewed: Yes Provider Attestation: The documentation as recorded by the Michel srivastava accurately reflects the service I personally performed and the decisions made by Edgar yao MD Status of Scribe Document: Viewed
[2019-05-30 07:31] VITALS: BP 92/55
== END 2019-05-30 07:30 | disposition home or self-care (01) ==
LOC: ED 01:15
DX: R45.851 Suicidal ideations (principal); F41.9 Anxiety disorder, unspecified; F32.9 Major depressive disorder, single episode, unspecified; F17.210 Nicotine dependence, cigarettes, uncomplicated; Z88.1 Allergy status to other antibiotic agents; Z88.0 Allergy status to penicillin; Z88.8 Allergy status to other drugs, medicaments and biological substances; Z79.899 Other long term (current) drug therapy
CPT/HCPCS: 99284